=== PATIENT | female | born 1955 | race Asian ===

== ENCOUNTER 2019-08-30 10:02 | Day surgery (SDC) | payer OTHER ==
[~2019-08-30] VITALS: Ht 157.5 cm; Wt 72.6 kg
[2019-08-30] MEDS ORDERED: MIDAZOLAM 2 MG/2 ML VIAL ONE (12:32)
[2019-08-30] MEDS ORDERED: LIDOCAINE 2% 100 MG/5 ML UJET TP ONE (12:33)
[2019-08-30] MEDS ORDERED: fentaNYL 0.05 MG/ML VIAL ONE (12:39)
[2019-08-30] MEDS ORDERED: MIDAZOLAM 2 MG/2 ML VIAL IVP ONE (13:35)
[2019-08-30] MEDS ORDERED: fentaNYL 0.05 MG/ML VIAL IVP ONE (13:35)
== END 2019-08-30 13:50 | disposition home or self-care (01) ==
LOC: MDS 10:02 → MMU 11:31 → MDS 13:50
PROVIDERS: ATTEND Internal Medicine Gastroenterology
DX: Z12.11 Encounter for screening for malignant neoplasm of colon (principal); K63.5 Polyp of colon; E66.3 Overweight; I10 Essential (primary) hypertension; E78.5 Hyperlipidemia, unspecified; Z79.82 Long term (current) use of aspirin; Z79.899 Other long term (current) drug therapy
CPT/HCPCS: 45380; J2250; J3010

== ENCOUNTER 2020-11-25 17:28 | Emergency (ER) | payer OTHER ==
[~2020-11-25] VITALS: Ht 157.5 cm; Wt 74.4 kg
[2020-11-25 17:35] VITALS: BP 114/45
--- NOTE | 2020-11-25 17:42 | NUR ---
patient ambulated with a steady gait to bed 8
--- NOTE | 2020-11-25 17:43 | NUR ---
Patient ambulated to the restroom and collected a urine specimen.
--- NOTE | 2020-11-25 17:49 | NUR ---
65 Y/O F PRESENTS TO ED FOR POSSIBLE SIDE EFFECT TO BACTRIM. DAUGHTER IN LAW REPORTS PT HAD BACTRIM X 1 MONTH AGO AND WAS TOLD POSSIBLE ALLEGY TO BACTRIM ( SE INCLUDED DIZZINESS, EYE REDNESS, LOW BP AND CHILLS). PT NOTICED BLOOD IN URINE THIS AM AND DECIDED TO TAKE LEFT OVER BACTRIM AT 1330 TO TREAT POSSIBLE URINARY INFECTION. PT ALSO REPORTING BODY ACHE 7/10 PAIN AND FATIGUE PMH- HTN, BORDERLINE DM, HLD, OSTEOPOROSIS RX- LISINOPRIL, LIPITOR, ALENDRONATE NKDA- POSSIBLY BACTRIM
[2020-11-25] MEDS ORDERED: NACL 0.9% 1,000 ML IV ONE ×2 (18:25→21:25)
[2020-11-25 19:10] LABS: HEMATOCRIT 37.2 % (36-48); HEMOGLOBIN 12.3 g/dL (12.0-16.0); MEAN CORPUSCULAR HEMOGLOBIN 31 pg (27-31); MEAN CORPUSCULAR HGB CONC 33 g/dL (33-37); MEAN CORPUSCULAR VOLUME 93.1 fL (80-94); PLATELET COUNT (AUTO) 290 K/uL (140-450); RED BLOOD CELL COUNT(AUTO) 3.99 MIL/uL (4.20-5.40); RED CELL DISTRIBUTION WIDTH 13.7 % (11.6-13.7); WHITE BLOOD COUNT (AUTO) 10.4 K/uL (4.8-10.8)
[2020-11-25 19:10] LABS: APPEARANCE,URINE SL CLOUDY (CLEAR); BILIRUBIN,URINE 1+ (NEGATIVE); BLOOD, URINE 3+ (NEGATIVE); COLOR,URINE YELLOW (YELLOW); LEUKOCYTE ESTERASE ,URINE 3+ (NEGATIVE); NITRITE, URINE NEGATIVE (NEGATIVE); UGLUCOSE NEGATIVE (NEGATIVE)
--- NOTE | 2020-11-25 19:10 | NUR ---
Report given MARIAM Garza
--- NOTE | 2020-11-25 19:12 | NUR ---
RECEIVED REPORT FROM MARIAM DIXON FOR CONTINUITY OF CARE
[2020-11-25 19:18] LABS: ALBUMIN 3.8 g/dL (3.4-5.0); ANION GAP 15.1 (8-16); CARBON DIOXIDE 22.1 mmol/L (21-32); CREATININE 1.1 mg/dL (0.6-1.3); POTASSIUM 4.2 mmol/L (3.5-5.1); TOTAL BILIRUBIN 0.7 mg/dL (0.0-1.0)
[2020-11-25 19:18] LABS: RBC,URINE 50-80 /HPF (0-5); WBC,URINE 80-100 /HPF (0-5)
--- NOTE | 2020-11-25 19:22 | NUR ---
Kaylyn mai in [facility] - 11/25/20 at 1923 by TY PT AMBULATED TO RESTROOM
[2020-11-25 19:31] LABS: LYMPHOCYTES % (MANUAL) 5 % (20-46); METAMYELOCYTES % 2 % (0-0)
[2020-11-25] MEDS ORDERED: cefTRIAXone 1,000 MG VIAL ONE (20:12)
--- NOTE | 2020-11-25 21:11 | NUR ---
Dr. Hanna examining patient.
[2020-11-25] MEDS ORDERED: LEVO500T98 PO (22:08)
[2020-11-25 22:36] VITALS: BP 114/45
--- NOTE | 2020-11-25 22:37 | NUR ---
Patient discharged with v/s stable. Written and verbal after care instructions given and explained. Patient alert, oriented and verbalized understanding of instructions. Ambulatory with steady gait. All questions addressed prior to discharge. ID band removed. Patient advised to follow up with PMD. Rx of LEVOFLOXACIN given. Patient educated on indication of medication including possible reaction and side effects. Opportunity to ask questions provided and answered.
--- NOTE | 2020-11-26 20:16 | NUR ---
LATE ENTRY- NORMAL SALINE 0.9% DISCONTINUED AT 2000
--- NOTE | 2020-11-26 20:17 | NUR ---
LATE ENTRY- NORMAL SALINE 0.9% DISCONTINUED AT 2200
--- NOTE | 2020-11-26 20:18 | NUR ---
LATE ENTRY- NORMAL SALINE 0.9% DISCONTINUED AT 2230
--- NOTE | 2020-11-26 20:18 | NUR ---
LATE ENTRY- ROCEPHIN DISCONTINUED AT 2100
== END 2020-11-25 22:37 | disposition home or self-care (01) ==
LOC: MED 17:28
DX: N39.0 Urinary tract infection, site not specified (principal); I10 Essential (primary) hypertension; E78.5 Hyperlipidemia, unspecified
CPT/HCPCS: 36415; 71045; 80053; 81001; 83690; 84484; 85025; 87086; 93005; 96361; 96365; 99285; J0696; J7030

== ENCOUNTER 2021-02-19 12:37 | Emergency (ER) | payer OTHER ==
[~2021-02-19] VITALS: Ht 157.5 cm; Wt 72.6 kg
[~2021-02-19 12:37] MED LIST: LEVO500T98 PO
[2021-02-19 12:59] VITALS: BP 122/67
--- NOTE | 2021-02-19 13:19 | NUR ---
Patient ambulated to bed 10.
--- NOTE | 2021-02-19 13:21 | NUR ---
65F BIB FAMILY MEMBER C/O DIZZINESS AND CHILLS THAT STARTED THIS MORNING. DENIES N/V/D. PT STATES SHE WAS VACCINATED FOR COVID. DENIES COUGH/SOB. AWAKE AND ALERT. PT ABLE TO AMBULATED WITHOUT DIFFICULTY. DENIES BLURRED VISION. NO PAIN AT THIS TIME. VSS MEDHX: DM, HTN, HLD
[2021-02-19] MEDS ORDERED: MECLIZINE 25 MG TAB PO ONE (13:30)
--- NOTE | 2021-02-19 13:52 | NUR ---
Lab at bedside.
[2021-02-19 14:07] LABS: BASOPHILS % (AUTO) 0.4 % (0.0-2.0); EOSINOPHILS % (AUTO) 0.1 % (0.0-4.0); HEMATOCRIT 39.2 % (36-48); HEMOGLOBIN 12.7 g/dL (12.0-16.0); LYMPHOCYTES # (AUTO) 0.9 K/uL (2.5-16.5); LYMPHOCYTES % (AUTO) 8.1 % (20.5-51.1); MEAN CORPUSCULAR HEMOGLOBIN 31 pg (27-31); MEAN CORPUSCULAR HGB CONC 32 g/dL (33-37); MEAN CORPUSCULAR VOLUME 94.4 fL (80-94); MONOCYTES # (AUTO) 0.1 K/uL (0.8-1.0); MONOCYTES % (AUTO) 0.9 % (1.7-9.3); NEUTROPHILS # (AUTO) 10.5 K/uL (1.8-7.7); NEUTROPHILS % (AUTO) 90.5 % (42.2-75.2); PLATELET COUNT (AUTO) 297 K/uL (140-450); RED BLOOD CELL COUNT(AUTO) 4.16 MIL/uL (4.20-5.40); WHITE BLOOD COUNT (AUTO) 11.6 K/uL (4.8-10.8)
[2021-02-19] MEDS ORDERED: KETOROLAC 15 MG/ML VIAL IVP ONE (14:15)
[2021-02-19] MEDS ORDERED: NACL 0.9% 1,000 ML IV ONE (14:15)
[2021-02-19 14:30] LABS: ANION GAP 19.4 (8-16); CARBON DIOXIDE 19.6 mmol/L (21-32); CREATININE 1.1 mg/dL (0.6-1.3); TOTAL BILIRUBIN 0.4 mg/dL (0.0-1.0)
[2021-02-19] MEDS ORDERED: POTASSIUM CHLORIDE 10 MEQ TABER PO ONE (14:50)
[2021-02-19 14:59] LABS: APPEARANCE,URINE HAZY (CLEAR); BILIRUBIN,URINE NEGATIVE (NEGATIVE); BLOOD, URINE TRACE-I (NEGATIVE); COLOR,URINE YELLOW (YELLOW); LEUKOCYTE ESTERASE ,URINE 3+ (NEGATIVE); NITRITE, URINE POSITIVE (NEGATIVE); UGLUCOSE TRACE (NEGATIVE)
[2021-02-19] MEDS ORDERED: SULF-59 PO (15:14)
[2021-02-19] MEDS ORDERED: ACET-10509 PO (15:14)
[2021-02-19 15:18] LABS: RBC,URINE 0-5 /HPF (0-5); WBC,URINE 20-60 /HPF (0-5)
[2021-02-19 15:44] VITALS: BP 100/52
--- NOTE | 2021-02-19 15:45 | NUR ---
Patient discharged with v/s stable. Written and verbal after care instructions given and explained. Patient alert, oriented and verbalized understanding of instructions. Ambulatory with steady gait. All questions addressed prior to discharge. ID band removed. Patient advised to follow up with PMD. Rx of TYLENOL, BACTRIM given. Patient educated on indication of medication including possible reaction and side effects. Opportunity to ask questions provided and answered.
--- NOTE | 2021-02-22 19:54 | NUR ---
LATE ENTRY- 0.9% NS BOLUS DISCONTINUED AT 1545
== END 2021-02-19 15:45 | disposition home or self-care (01) ==
LOC: MED 12:37
DX: R42 Dizziness and giddiness (principal); R68.83 Chills (without fever); E11.9 Type 2 diabetes mellitus without complications; I10 Essential (primary) hypertension
CPT/HCPCS: 36415; 80053; 81001; 85025; 87086; 93005; 96361; 96374; 99284; J1885; J7030; J8597

== ENCOUNTER 2021-05-04 12:48 | Observation (INO) | payer OTHER, SELFPAY ==
[~2021-05-04] VITALS: Ht 157.5 cm; Wt 70.8 kg
[~2021-05-04 12:48] MED LIST changes: +ACET-10509 PO; +SULF-59 PO
[2021-05-04 13:16] VITALS: BP 144/97
--- NOTE | 2021-05-04 13:26 | NUR ---
PT AMB TO BED 10
--- NOTE | 2021-05-04 13:30 | NUR ---
PT DAUGHTER , LYNDSEY [phone]
--- NOTE | 2021-05-04 13:42 | NUR ---
Dr. Pichardo bedside evaluating pt
[2021-05-04] MEDS ORDERED: KETOROLAC 30 MG/ML VIAL IVP ONE (13:45)
[2021-05-04] MEDS ORDERED: NACL 0.9% 1,000 ML IV SCH (13:45)
--- NOTE | 2021-05-04 13:51 | NUR ---
65 Y FEMALE WITH C/O BODY ACHE, CHILLS, EYES REDNESS AFTER TAKING BACTRIM BS AT 8 AM TODAY. SEEN PCP YESTERDAY FOR LEFT EAR INFECTION AND WAS GIVEN BACTRIM TO HELP WITH INFECTION. PT CURRENTLY DENIES ANY CHEST PAIN/SOB AT THIS TIME. PT STATED SHE FEELS "BODY ACHES ALL OVER." UPON ASSESSMENT BILATERAL EYES ARE RED. PMH:HTN, DM NKA
--- NOTE | 2021-05-04 14:03 | NUR ---
XRAY AT BEDSIDE
[2021-05-04] MEDS ORDERED: cefTRIAXone 1,000 MG VIAL ONE ×2 (14:31→17:40)
--- NOTE | 2021-05-04 15:00 | NUR ---
BLOOD WORK, BLOOD CULTURES, AND URINE COLLECTED BEDSIDE AND WALKED OVER TO LAB Addendum: 05/04/21 at 1502 by MEDFLOYD HANDED TO CENSUS CLERK JEREMY GOMEZ
[2021-05-04] MEDS ORDERED: KETOROLAC 30 MG/ML VIAL ONE (15:02)
[2021-05-04 15:19] LABS: BASOPHILS # (AUTO) 0.1 K/uL (0.00-0.22); BASOPHILS % (AUTO) 0.6 % (0.0-2.0); HEMATOCRIT 39.2 % (36-48); HEMOGLOBIN 13.1 g/dL (12.0-16.0); LYMPHOCYTES # (AUTO) 0.4 K/uL (2.5-16.5); LYMPHOCYTES % (AUTO) 3.6 % (20.5-51.1); MEAN CORPUSCULAR HEMOGLOBIN 31 pg (27-31); MEAN CORPUSCULAR HGB CONC 34 g/dL (33-37); MEAN CORPUSCULAR VOLUME 93.4 fL (80-94); MONOCYTES # (AUTO) 0.2 K/uL (0.8-1.0); MONOCYTES % (AUTO) 2.2 % (1.7-9.3); NEUTROPHILS # (AUTO) 10.2 K/uL (1.8-7.7); NEUTROPHILS % (AUTO) 93.6 % (42.2-75.2); PLATELET COUNT (AUTO) 229 K/uL (140-450); RED CELL DISTRIBUTION WIDTH 13.9 % (11.6-13.7)
[2021-05-04 15:40] LABS: ALBUMIN 4.1 g/dL (3.4-5.0); ANION GAP 17.6 (8-16); CARBON DIOXIDE 23.9 mmol/L (21-32); CREATININE 1.3 mg/dL (0.6-1.3); POTASSIUM 3.5 mmol/L (3.5-5.1); TOTAL BILIRUBIN 0.3 mg/dL (0.0-1.0)
[2021-05-04 16:04] LABS: BILIRUBIN,URINE 2+ (NEGATIVE); BLOOD, URINE 2+ (NEGATIVE); COLOR,URINE YELLOW (YELLOW); LEUKOCYTE ESTERASE ,URINE 1+ (NEGATIVE); NITRITE, URINE POSITIVE (NEGATIVE); UGLUCOSE TRACE (NEGATIVE)
[2021-05-04 16:06] LABS: APPEARANCE,URINE HAZY (CLEAR)
[2021-05-04 16:17] LABS: RBC,URINE NONE SEEN /HPF (0-5)
[2021-05-04] MEDS ORDERED: CALC-1646 PO (16:20)
[2021-05-04] MEDS ORDERED: HYDR-4004 PO (16:20)
[2021-05-04] MEDS ORDERED: VITB12 PO (16:20)
[2021-05-04] MEDS ORDERED: FAMO-90 PO (16:20)
[2021-05-04] MEDS ORDERED: ASPI-1822 PO (16:20)
[2021-05-04] MEDS ORDERED: METF-988 PO (16:20)
[2021-05-04] MEDS ORDERED: SULF-58 PO (16:20)
[2021-05-04] MEDS ORDERED: LOSA100T1 PO (16:20)
--- NOTE | 2021-05-04 16:22 | NUR ---
Patient appears to be resting comfortably in bed with eyes open and lights on. Vital Signs within normal limits. Respirations even and unlabored. Bed in lowest position with siderail x2 up. Will continue to monitor
--- NOTE | 2021-05-04 16:22 | NUR ---
med rec completed for patient admit
[2021-05-04] MEDS ORDERED: NACL 0.9% 1,000 ML IV ONE (16:30)
[2021-05-04] MEDS ORDERED: ACETAMINOPHEN 325 MG TAB PO PRN (17:05)
[2021-05-04] MEDS ORDERED: ONDANSETRON 4 MG/2 ML VIAL IVP PRN (17:05)
[2021-05-04] MEDS ORDERED: INSULIN LISPRO SLIDING SCALE 100 UNITS/ML VIAL SUBQ PRN (17:05)
[2021-05-04] MEDS ORDERED: HYDROcodone/APAP 5/325 MG 1 TAB TAB PO PRN (17:05)
[2021-05-04] MEDS ORDERED: DEXTROSE 50% 50 ML SYR IVP PRN (17:05)
[2021-05-04] MEDS: NACL 0.9% 1,000 ML IV SCH (17:43)
--- NOTE | 2021-05-04 19:18 | NUR ---
Pt report given to MARIAM PERALTA. Transfer of care at this time.
--- NOTE | 2021-05-04 19:24 | NUR ---
REPORT RECIEVED FROM MARIAM MITCHELL FOR CONTINUITY OF CARE.
--- NOTE | 2021-05-04 20:00 | NUR ---
Patient appears to be resting comfortably in bed, EYES CLOSED. ARUOSABLE TO VOICE. Vital Signs within normal limits. Respirations even and unlabored. IV TO LEFT WRIST PATENT WITH FLUIDS RUNNING ORDERED. WILL CONTINUE TO MONITOR.
--- NOTE | 2021-05-04 20:32 | NUR ---
CALLED MARIAM SINHA TO GIVE ADMISSION REPORT, NO ANSWER. WILL CALL AGAIN.
--- NOTE | 2021-05-04 20:35 | NUR ---
Patient will be admitted to care of MD TEAGAN. Admited to TELE. Will go to room 106B. Belongings list completed. Report to MARIAM SINHA.
[2021-05-04] MEDS: BLOOD GLUCOSE MONITORING 1 DEV DEV FS SCH (21:00)
--- NOTE | 2021-05-04 21:09 | NUR ---
PT TAKEN TO TELE RM 106B VIA GURVEE WITH NATACHA OCHOA AND WALESKA BECERRA.
--- NOTE | 2021-05-04 21:20 | NUR ---
pt arrived from ED via Stretcher. Pt attached to Telemetry Box. Pt A+O*4. Pt in stable condition and in no apparent distress. Admission vital signs: 98.6 (T), 17 (RR), 96% (O2 Sat), 98/62 (BP), and 79 (HR or P).
--- NOTE | 2021-05-05 03:10 | NUR ---
ASSUMED CARE OF THE PATIENT FROM MARIAM AMIN. RECEIVED PATIENT ASLEEP AND EASY TO AROUSE. NOT IN ANY DISTRESS AND NO COMPLAIN AT THIS TIME. IVF INFUSING ORDERED. CALL LIGHT WITHIN REACH. WILL CONTINUE POC AND MONITORING.
[2021-05-05 04:00] VITALS: BP 95/47
--- NOTE | 2021-05-05 06:15 | NUR ---
PT IV ON THE LEFT WRIST GOT INFILTRATED. DC/D IV, CANNULA INTACT. STARTED A new iv on the rt hand gauge 20. Pt tolerated it well.
[2021-05-05] MEDS: BLOOD GLUCOSE MONITORING 1 DEV DEV FS SCH ×4 (06:22→20:30)
[2021-05-05] MEDS: NACL 0.9% 1,000 ML IV SCH ×2 (06:22→10:57)
--- NOTE | 2021-05-05 06:30 | NUR ---
PATIENT STABLE. NO ACUTE EVENTS THROUGHOUT THE NIGHT. PT NOT IN ANY DISTRESS AND NO COMPLAIN AT THIS TIME. ALL NEEDS ATTENDED. CALL LIGHT WITHIN REACH. WILL ENDORSE THE PATIENT TO THE ONCOMING RN FOR CONTINUITY OF CARE.
--- NOTE | 2021-05-05 07:26 | NUR ---
ENDORSED PT TO DAY RN FOR CONTINUITY OF CARE. PT STABLE. SIGNING OFF.
--- NOTE | 2021-05-05 07:27 | NUR ---
RECEIVED BEDSIDE REPORT FROM WOOD MACHINIST APPRENTICE NURSE HANNAH RN, PT SLEEPING, NO DISTRESS NOTED, AAOX4, IV TO R HAND 20G PATENT INTACT, INFUSING NS @ 75ML/HR, INFUSING WELL PT ON ROOM AIR, NO SOB NOTED, DENIES PAIN AT THIS MOMENT, INITIAL ASSESSMENT DONE, ALL SAFETY PRECAUTION MET, CALL LIGHT WITHIN REACH, WILL CONTINUE TO MONITOR.
[2021-05-05 07:35] LABS: BASOPHILS % (AUTO) 0.1 % (0.0-2.0); EOSINOPHILS # (AUTO) 0.1 K/uL (0-0.4); EOSINOPHILS % (AUTO) 0.9 % (0.0-4.0); HEMATOCRIT 33.7 % (36-48); HEMOGLOBIN 11.2 g/dL (12.0-16.0); LYMPHOCYTES # (AUTO) 1.2 K/uL (2.5-16.5); LYMPHOCYTES % (AUTO) 10.2 % (20.5-51.1); MEAN CORPUSCULAR HEMOGLOBIN 31 pg (27-31); MEAN CORPUSCULAR HGB CONC 33 g/dL (33-37); MEAN CORPUSCULAR VOLUME 94.2 fL (80-94); MONOCYTES # (AUTO) 0.4 K/uL (0.8-1.0); MONOCYTES % (AUTO) 3.5 % (1.7-9.3); NEUTROPHILS # (AUTO) 9.7 K/uL (1.8-7.7); NEUTROPHILS % (AUTO) 85.3 % (42.2-75.2); PLATELET COUNT (AUTO) 203 K/uL (140-450); RED BLOOD CELL COUNT(AUTO) 3.58 MIL/uL (4.20-5.40); RED CELL DISTRIBUTION WIDTH 14.1 % (11.6-13.7); WHITE BLOOD COUNT (AUTO) 11.4 K/uL (4.8-10.8)
[2021-05-05 08:00] VITALS: BP 104/66
[2021-05-05 08:19] LABS: ALBUMIN 3.1 g/dL (3.4-5.0); ANION GAP 14.3 (8-16); CARBON DIOXIDE 23.4 mmol/L (21-32); MAGNESIUM 1.8 mg/dL (1.8-2.4); POTASSIUM 3.7 mmol/L (3.5-5.1); TOTAL BILIRUBIN 0.5 mg/dL (0.0-1.0)
[2021-05-05] MEDS ORDERED: LOSARTAN 50 MG TAB PO SCH (09:00)
[2021-05-05] MEDS: ASPIRIN 81 MG TAB.CHEW PO SCH (09:21)
[2021-05-05] MEDS: FAMOTIDINE 20 MG TAB PO SCH (09:21)
--- NOTE | 2021-05-05 09:21 | NUR ---
DUE MEDICATIONS ADMINISTERED, PT TOLERATED WELL, NO DISTRESS NOTED, WILL CONTINUE TO MONITOR.
[2021-05-05] MEDS: ENOXAPARIN 40 MG/0.4 ML SYR SUBQ SCH (09:26)
--- NOTE | 2021-05-05 11:21 | NUR ---
PT AMBULATED TO RESTROOM AND BACK TO BED, TOLERATED WELL, NO DISTRESS NOTED, WILL CONTINUE TO MONITOR.
[2021-05-05 12:00] VITALS: BP 118/61
[2021-05-05 16:00] VITALS: BP 115/62
--- NOTE | 2021-05-05 16:09 | NUR ---
PT TEMPERATURE 102.4, PRN TYLENOL GIVEN PER DR ORDER, PT TOLERATED WELL, NO DISTRESS NOTED, WILL CONTINUE TO MONITOR.
--- NOTE | 2021-05-05 17:18 | NUR ---
RECHECKED PT TEMPERATURE 100.7, WILL CONTINUE TO MONITOR.
--- NOTE | 2021-05-05 19:23 | NUR ---
ENDORSED PT TO SUBSCRIPTION CREW LEADER NURSE JEREMY BECERRA FOR CONTINUOUS OF CARE.
--- NOTE | 2021-05-05 19:30 | NUR ---
RECEIVED REPORT FROM MODESTO BECERRA DAYSHIFT NURSE FOR CONTINUITY OF CARE, PT IN STABLE CONDITION.
[2021-05-05 20:00] VITALS: BP 102/68
--- NOTE | 2021-05-05 20:00 | NUR ---
PT LYING IN BED AOX4 RESPIRATIONS EVEN AND UNLABORED ON ROOM AIR. SHE HAS A 20G ON HER RIGHT HAND RUNNING NORMAL SALINE AT 75MLS/HR. PT FINGERSTICK IS 149, NO HUMALOG COVERAGE NEEDED. V/S FOLLOWS: T 99.1 P 70 R 20 B/P 102/68 02 97% ON ROOM AIR. COOLING MEASURES GIVEN FOR INCREASED TEMPERATURE. ALL UNIVERSAL FALLS PRECAUTIONS IN PLACE.
[2021-05-06] VITALS: BP 97/56
--- NOTE | 2021-05-06 00:30 | NUR ---
PT IN BED RESTING WITH EYES CLOSED AROUSABLE TO NAME AND LIGHT TOUCH, NO C/O VOICED. BAG OF NORMAL SALINE HUNG AND RUNNING AT 75MLS/HR ORDERED. V/S FOLLOWS: T 98.7 P 70 R 18 B/P 97/56 02 95% ON ROOM AIR. PT HAS NO C/O VOICED AT THIS TIME AND ALL UNIVERSAL FALLS PRECAUTIONS IN PLACE.
[2021-05-06 04:00] VITALS: BP 96/59
--- NOTE | 2021-05-06 04:30 | NUR ---
PT IN BED IV SITE OUT AT THIS TIME. NEW IV SITE PROVIDED TO RIGHT WRIST 22 GUAGE. LINENS AND GOWN CHANGED. PT HAS NO C/O VOICED OF PAIN OR DISTRESS NOTED. V/S FOLLOWS: T 99.1 P 68 R 18 B/P 96/59M 02 95% ON ROOM AIR. ALL UNIVERSAL FALLS PRECAUTIONS IN PLACE.
--- NOTE | 2021-05-06 06:30 | NUR ---
PT DENIES ANY PAIN OR DISTRESS FINGERSTICK IS 111 NO HUMALOG COVERAGE NEEDED. FLUIDS RUINING AAS ORDERED ALL UNIVERSAL FALLS PRECAUTIONS IN PLACE.
[2021-05-06 06:58] LABS: BASOPHILS % (AUTO) 0.3 % (0.0-2.0); EOSINOPHILS # (AUTO) 0.2 K/uL (0-0.4); HEMATOCRIT 31.5 % (36-48); HEMOGLOBIN 10.6 g/dL (12.0-16.0); LYMPHOCYTES # (AUTO) 1.6 K/uL (2.5-16.5); LYMPHOCYTES % (AUTO) 23.5 % (20.5-51.1); MEAN CORPUSCULAR HEMOGLOBIN 31 pg (27-31); MEAN CORPUSCULAR HGB CONC 34 g/dL (33-37); MEAN CORPUSCULAR VOLUME 93.2 fL (80-94); MONOCYTES # (AUTO) 0.5 K/uL (0.8-1.0); MONOCYTES % (AUTO) 7.3 % (1.7-9.3); NEUTROPHILS # (AUTO) 4.4 K/uL (1.8-7.7); NEUTROPHILS % (AUTO) 65.9 % (42.2-75.2); PLATELET COUNT (AUTO) 165 K/uL (140-450); RED BLOOD CELL COUNT(AUTO) 3.38 MIL/uL (4.20-5.40); RED CELL DISTRIBUTION WIDTH 14.5 % (11.6-13.7); WHITE BLOOD COUNT (AUTO) 6.7 K/uL (4.8-10.8)
[2021-05-06 07:07] LABS: ANION GAP 13.8 (8-16); CARBON DIOXIDE 23.2 mmol/L (21-32); CREATININE 0.9 mg/dL (0.6-1.3)
[2021-05-06] MEDS: BLOOD GLUCOSE MONITORING 1 DEV DEV FS SCH ×2 (07:07→11:30)
--- NOTE | 2021-05-06 07:30 | NUR ---
RECEIVED PT IN BED, AAOX4. NO SOB NOTED. NO C/O PAIN AT THIS TIME. IV TO RT WRIST PATENT AND INTACT. CHEST DIMINISHED AIR ENTRY TO THE BASES, OTHERWISE CLEAR. ABDOMEN SOFT, BOWEL SOUNDS PRESENT. INSTRUCTED PT TO CALL FOR ASSISTANCE, CALL LIGHT WITHIN REACH. VERBALIZED UNDERSTANDING.
[2021-05-06] MEDS: NACL 0.9% 1,000 ML IV SCH (07:34)
[2021-05-06 08:00] VITALS: BP 113/74
[2021-05-06] MEDS: ASPIRIN 81 MG TAB.CHEW PO SCH (09:39)
[2021-05-06] MEDS: FAMOTIDINE 20 MG TAB PO SCH (09:39)
[2021-05-06] MEDS: ENOXAPARIN 40 MG/0.4 ML SYR SUBQ SCH (09:41)
[2021-05-06] MEDS ORDERED: CEPH500C16 PO (09:43)
--- NOTE | 2021-05-06 10:00 | NUR ---
DR. CANDELARIA CAME TO SEE PT WITH D/C ORDER.
--- NOTE | 2021-05-06 12:30 | NUR ---
DISCHARGE INSTRUCTIONS GIVEN TO PT WHICH VERBALIZED FULL UNDERSTANDING OF THE TEACHINGS GIVEN AND THE NEED TO FF UP WITH OWN PCP IN 7 DAYS. PT ALSO MADE AWARE THAT HER NEW PRESCRIPTIONS WERE SENT TO HER PREFERRED PHARMACY. ARM BANDS AND IV REMOVED, CANNULA TIP INTACT. PT STATED HER RETAIL GENERAL MANAGER IS COMING AFTER LUNCH.
--- NOTE | 2021-05-06 13:15 | NUR ---
PT ESCORTED BY ICE CREAM CHEF TO THE FRONT LOBBY IN STABLE CONDITION. NO SOB NOTED. NO COMPLAINTS MADE. PT IS D/C HOME WITH DAUGHTER.
--- NOTE | 2021-05-07 14:20 | NUR ---
DC PLANNING SW CALL PATIENT'S PCP OFFICE MD GUADALUPE AT TO SCHEDULED A FOLLOW UP APPOINTMENT. SPOKE TO MILTON WHO WAS ABLE TO SCHEDULED PATIENT'S APPOINTMENT FOR 05/13/2021 AT 12:00PM AT [address] [facility]. [address] [facility] [id number]. SW THANK MILTON AND ENDED THE CALL. SW CALL PATIENT AT TO INFORM HER OF SCHEDULED APPOINTMENT TO FOLLOW UP WITH HER PCP. SW PROVIDE PT. WITH ADDRESS, DATE AND TIME OF APPOINTMENT, SHW THANKED THIS MEMORY CARE PROGRAM DIRECTOR AND STATED SHE WILL ATTEND.
== END 2021-05-06 13:22 | disposition home or self-care (01) ==
LOC: MED 12:48 → MTU 17:09
PROVIDERS: ADMIT Internal Medicine; ATTEND Internal Medicine
DX: N39.0 Urinary tract infection, site not specified (principal); Z20.822 Contact with and (suspected) exposure to COVID-19; E87.2 Acidosis; E11.9 Type 2 diabetes mellitus without complications; I10 Essential (primary) hypertension; Z79.82 Long term (current) use of aspirin; Z79.899 Other long term (current) drug therapy
CPT/HCPCS: 36415; 71045; 80048; 80053; 81001; 82948; 83605; 83735; 85025; 87040; 87081; 87086; 87426; 96361; 96365; 96366; 96372; 96375; 99291; G0378; J0696; J1650; J1885; J7060; Q0092